=== PATIENT | female | born 1985 | race Caucasian/White ===

== ENCOUNTER 2018-03-10 21:04 | Emergency (ER) | payer MEDICAID, OTHER ==
[2018-03-10 21:17] VITALS: BP 126/83
--- NOTE | 2018-03-10 21:58 | ER Document Report ---
HPI - HPI Patient complains to provider of: left lower mouth pain Onset: Last week Onset/Duration: Gradual Pain Level: 4 Context: 32 yo femae c/o left lower gum swelling. No fever. No facial swelling. Associated Symptoms: None Exacerbated by: Denies Relieved by: Denies Similar symptoms previously: No Recently seen / treated by doctor: No - ROS ROS below otherwise negative: Yes Systems Reviewed and Negative: Yes All other systems reviewed and negative Past Medical History - General Information source: Patient - Social History Smoking Status: Never Smoker Frequency of alcohol use: None Drug Abuse: None Lives with: Family Family History: Reviewed & Not Pertinent - Medical History Medical History: Negative Surgical Hx: Negative Vertical Provider Document - CONSTITUTIONAL Agree With Documented VS: Yes Exam Limitations: No Limitations General Appearance: No Apparent Distress - INFECTION CONTROL TRAVEL OUTSIDE OF THE [place] IN LAST 30 DAYS: No - HEENT HEENT: Normocephalic Notes: small abscess inner aspect of left lower ginginva behind 2nda molar - NECK Neck: Supple. negative: Lymphadenopathy-Left, Lymphadenopathy-Right - NEURO Level of Consciousness: Awake - DERM Integumentary: No Rash Course - Vital Signs Vital signs: Temp Pulse Resp BP Pulse Ox 98.5 F 104 H 16 126/83 H 94 03/10/18 21:15 03/10/18 21:15 03/10/18 21:15 03/10/18 21:15 03/10/18 21:15 Discharge - Discharge Clinical Impression: Dental abscess Condition: Good Disposition: HOME, SELF-CARE Instructions: Acetaminophen, Ibuprofen (General) ([facility]), Penicillin V K ([facility]) Additional Instructions: Warm compress Tylenol Motrin insulin See the dentist get home to [place] Prescriptions: Ibuprofen [Motrin 800 mg Tablet] 800 mg PO Q8HP PRN #30 tablet PRN Reason: Penicillin V Potassium [Penicillin Vk 500 mg Tablet] 500 mg PO QID #40 tablet Referrals: LOCALMD,NO [NO LOCAL MD] - Follow up as needed
[2018-03-10] MEDS ORDERED: ACETAMINOPHEN 325 MG TABLET PO ONE (22:11)
[2018-03-10] MEDS ORDERED: IBUPROFEN 800 MG TABLET PO ONE (22:11)
[2018-03-10] MEDS ORDERED: PENICILLIN V POTASSIUM 500 MG TABLET PO ONE (22:11)
== END 2018-03-10 22:26 | disposition home or self-care (01) ==
LOC: ER 21:04
DX: K04.7 Periapical abscess without sinus (principal); K08.89 Other specified disorders of teeth and supporting structures; R22.0 Localized swelling, mass and lump, head
CPT/HCPCS: 99282